=== PATIENT | female | born 1955 | race Caucasian/White ===

== ENCOUNTER → 2018-07-14 | Outpatient (CLI) | payer OTHER ==
[~2018-07-14] MED LIST: DEXA4 PO; GLIM4 PO; LISI20 PO; LORA.5 PO; METF500; Novolog Fl100 UNIT/1 SQ; ONDA4ODT; PROC10 PO; RAMI5 PO; Simvastatin20 MG PO
[2018-07-14 20:03] LABS: Bun/Creatinine Ratio 34.5 (12.0-20.0); Calcium, Blood 7.3 mg/dL (8.5-10.1); Creatinine, Blood 1.1 mg/dL (0.40-1.00); Potassium, Blood 3.7 mmol/L (3.5-5.5)
== END | disposition home or self-care (01) ==
LOC: LAB 18:23 → LAB SHORT 18:23
PROVIDERS: Hospitalist
DX: R60.0 Localized edema (principal)
CPT/HCPCS: 80048

== ENCOUNTER → 2018-12-28 | Outpatient (CLI) | payer MEDICARE, OTHER ==
[~2018-12-28] MED LIST changes: +ASPI325EC PO; +Bumetanide2 MG PO; +DOCCAL240 PO; +LEVSOD100 PO; +Metformin HCl1000 MG PO; +NOVOLOG FL100 UNIT/1 SC; +OMEPRAZOLE20 MG PO; +POTA10T PO; +Prinivil10 MG PO; +TOUJEO SOL300 UNIT/1 SC; +[UNRECOGNIZED DRUG - OTHER] PO
[2018-12-29 18:06] LABS: VARICELLA ZOSTER IGG >4000 index (Immune >165)
== END | disposition home or self-care (01) ==
LOC: LAB 13:11 → LAB SHORT 13:11
PROVIDERS: Hospitalist
DX: E11.65 Type 2 diabetes mellitus with hyperglycemia (principal); B02.9 Zoster without complications
CPT/HCPCS: 83036; 86787

== ENCOUNTER 2019-02-09 07:34 | Day surgery (SDC) | payer MEDICARE, OTHER ==
[~2019-02-09] VITALS: Ht 152.4 cm; Wt 84.8 kg
--- NOTE | 2019-02-09 08:40 | NUR ---
02/09/[address] NOTIFIED OF PT'S BLOOD SUGAR OF 365. NO INTERVENTIONS AT THIS TIME PER .
--- NOTE | 2019-02-09 09:24 | NUR ---
02/09/19923 Bertha Louis PT BEGAN WRETCHING AT 09. SUCTION USED ON CLEAR FLUID FROM MOUTH. HEAD TILTED DOWNWARD. 4MG IV ZOFRAN GIVEN PER DR. GILLILAND STOPPED AT 918.
== END 2019-02-09 10:15 | disposition home or self-care (01) ==
LOC: ORSCSDS 07:34
PROVIDERS: Internal Medicine Gastroenterology
PROC: 0DJD8ZZ Inspection of Lower Intestinal Tract, Via Natural or Artificial Opening Endoscopic (ICD-10-PCS; principal; 2019-02-09 08:45)
DX: K62.5 Hemorrhage of anus and rectum (principal); K62.7 Radiation proctitis; K64.8 Other hemorrhoids; K59.00 Constipation, unspecified; E11.9 Type 2 diabetes mellitus without complications; E03.9 Hypothyroidism, unspecified; E11.22 Type 2 diabetes mellitus with diabetic chronic kidney disease; E11.65 Type 2 diabetes mellitus with hyperglycemia; I12.9 Hypertensive chronic kidney disease with stage 1 through stage 4 chronic kidney disease, or unspecified chronic kidney disease; N18.2 Chronic kidney disease, stage 2 (mild); Z79.4 Long term (current) use of insulin; Z79.82 Long term (current) use of aspirin
CPT/HCPCS: 82947; J2405; J2704; J7120

== ENCOUNTER → 2019-05-04 | Outpatient (CLI) | payer MEDICARE, OTHER | END | disposition home or self-care (01) | LOC: LAB 18:24 → LAB SHORT 18:24 | DX: N39.0 Urinary tract infection, site not specified (principal) | CPT/HCPCS: 87077; 87086; 87186 ==

== ENCOUNTER → 2020-01-11 | Outpatient (CLI) | payer MEDICARE, OTHER | END | disposition home or self-care (01) | LOC: LAB 13:21 → LAB SHORT 13:21 | DX: N30.01 Acute cystitis with hematuria (principal) | CPT/HCPCS: 87077; 87086; 87186 ==

== ENCOUNTER → 2020-05-10 | Outpatient (CLI) | payer MEDICARE, OTHER ==
[2020-05-10 19:11] LABS: Bun/Creatinine Ratio 13.6 (12.0-20.0); Calcium, Blood 8.4 mg/dL (8.5-10.1); Creatinine, Blood 1.1 mg/dL (0.40-1.00); Potassium, Blood 3.3 mmol/L (3.5-5.5)
== END ==
LOC: LAB SHORT 17:32
PROVIDERS: Hospitalist
DX: I50.33 Acute on chronic diastolic (congestive) heart failure (principal)
CPT/HCPCS: 80048

== ENCOUNTER → 2020-12-13 | Outpatient (CLI) | payer MEDICARE, OTHER ==
[2020-12-13 16:42] LABS: CHOL/HDL RATIO 4.1; Cholesterol 228 mg/dL (50-200); HDL Cholesterol 56 mg/dL (>39); LDL/HDL RATIO 2.8; Low Density Lipoprotein Chol 155 mg/dL (0-110); Triglycerides 83 mg/dL (30-160); Very Low Density Lipoprot Chol 16 mg/dL (6-32)
[2020-12-13 16:55] LABS: Free Thyroxine 0.87 ng/dL (0.70-1.60)
[2020-12-13 16:57] LABS: Thyroid Stimulating Hormone 11.8 uIU/mL (0.360-4.800)
== END | disposition home or self-care (01) ==
LOC: LAB SHORT 11:13
PROVIDERS: Hospitalist
DX: E78.5 Hyperlipidemia, unspecified (principal); E11.65 Type 2 diabetes mellitus with hyperglycemia; E03.9 Hypothyroidism, unspecified
CPT/HCPCS: 80061; 82043; 83036; 84439; 84443

== ENCOUNTER → 2021-03-22 | Outpatient (CLI) | payer MEDICARE, OTHER | LOC: LAB SHORT 13:00 | DX: L89.620 Pressure ulcer of left heel, unstageable (principal); Z88.5 Allergy status to narcotic agent | CPT/HCPCS: 87070; 87077; 87147; 87186; 87205 ==

== ENCOUNTER 2021-04-06 12:41 | Day surgery (SDC) | payer MEDICARE, OTHER | END 2021-04-06 23:16 | disposition home or self-care (01) | LOC: WOUND 12:41 | PROC: 0JBR0ZZ Excision of Left Foot Subcutaneous Tissue and Fascia, Open Approach (ICD-10-PCS; principal; 2021-04-06) | DX: E11.621 Type 2 diabetes mellitus with foot ulcer (principal); L97.526 Non-pressure chronic ulcer of other part of left foot with bone involvement without evidence of necrosis; L89.620 Pressure ulcer of left heel, unstageable; E11.42 Type 2 diabetes mellitus with diabetic polyneuropathy; E11.51 Type 2 diabetes mellitus with diabetic peripheral angiopathy without gangrene; I11.0 Hypertensive heart disease with heart failure; I50.9 Heart failure, unspecified; I89.0 Lymphedema, not elsewhere classified; Z79.4 Long term (current) use of insulin; Z88.5 Allergy status to narcotic agent; Z87.891 Personal history of nicotine dependence | CPT/HCPCS: A9270; G0463 ==

== ENCOUNTER 2021-04-13 05:14 | Day surgery (SDC) | payer MEDICARE, OTHER ==
[~2021-04-13 05:14] MED LIST changes: +EUTHYROX125 MCG PO; -LEVSOD100 PO
== END 2021-04-13 22:55 | disposition home or self-care (01) ==
LOC: WOUND 05:14
DX: E11.621 Type 2 diabetes mellitus with foot ulcer (principal); L97.525 Non-pressure chronic ulcer of other part of left foot with muscle involvement without evidence of necrosis; L89.620 Pressure ulcer of left heel, unstageable; E11.42 Type 2 diabetes mellitus with diabetic polyneuropathy; E11.51 Type 2 diabetes mellitus with diabetic peripheral angiopathy without gangrene; I89.0 Lymphedema, not elsewhere classified
CPT/HCPCS: A9270

== ENCOUNTER 2021-04-14 18:03 | Inpatient (IN) | payer MEDICARE, OTHER ==
[~2021-04-14] VITALS: Ht 152.4 cm; Wt 86.0 kg
[~2021-04-14 18:03] MED LIST changes: +SEMGLEE PE100 UNIT/1 SC; -TOUJEO SOL300 UNIT/1 SC
[2021-04-14 18:39] LABS: BASOPHILS ABSOLUTE AUTO 0.14 K/mm3 (0.00-0.23); BASOPHILS PERCENT AUTO 1 % (0-2); EOSINOPHILS ABSOLUTE AUTO 0.24 K/mm3 (0.00-0.68); EOSINOPHILS PERCENT AUTO 2 % (0-6); Hematocrit 32.7 % (33.0-51.0); Hemoglobin 9.7 g/dL (11.5-16.0); IMMATURE GRAN ABSOLUTE AUTO 0.07 K/mm3 (0.00-0.10); IMMATURE GRAN PERCENT AUTO 0 % (0-1); LYMPHOCYTES PERCENT AUTO 8 % (21-46); MONOCYTES ABSOLUTE AUTO 1.12 K/mm3 (0.16-1.47); MONOCYTES PERCENT AUTO 7 % (4-13); Mean Corpuscular HGB 24.4 pg (26.0-34.0); Mean Corpuscular HGB Conc 29.7 g/dL (31.5-36.5); Mean Corpuscular Volume 82 fL (80-100); Mean Platelet Volume 8.4 fL (9.1-12.4); NEUTROPHILS ABSOLUTE AUTO 13.53 K/mm3 (1.96-9.15); NEUTROPHILS PERCENT AUTO 83 % (41-73); Platelet Count 609 K/mm3 (150-400); RDW Coefficient Variation 16.7 % (11.7-14.2); RDW Standard Deviation 49.8 fL (35.1-46.3); Red Blood Cell Count 3.97 M/mm3 (3.80-5.20)
[2021-04-14 18:53] LABS: Base Excess Venous -1.2 mmol/L; Bicarbonate Venous 22.6 mmol/L (24.0-30.0); PCO2 Venous 53.1 mmHg (38-42); PO2 Venous 38.9 mmHg (38-42); pH Blood Venous 7.29 (7.34-7.37)
[2021-04-14 19:02] LABS: Troponin I <0.015 ng/mL (0.000-0.040)
[2021-04-14 19:03] LABS: Alanine Aminotransfer (ALT/SGP 25 U/L (12-78); Albumin/Globulin Ratio 0.3 (0.8-1.8); Alk Phos 226 U/L (50-136); Anion Gap 5 mmol/L (6-16); Aspartate Aminotrans (AST/SGOT 23 U/L (12-37); Bilirubin, Total 0.7 mg/dL (0.1-1.0); Blood Urea Nitrogen 26 mg/dL (8-24); Bun/Creatinine Ratio 14.4 (12.0-20.0); CO2, Blood 25 mmol/L (21-32); Calcium, Blood 8.2 mg/dL (8.5-10.1); Chloride, Blood 105 mmol/L (98-108); Globulin, Blood 6.7 g/dL (2.2-4.0); Glomerular Filtration Rate 28 (60-); Glucose, Blood 157 mg/dL (70-99); Sodium, Blood 135 mmol/L (136-145); Total Protein, Blood 8.7 g/dL (6.4-8.2)
[2021-04-14 19:28] LABS: Influenza A, PCR NEGATIVE (NEGATIVE); Influenza B, PCR NEGATIVE (NEGATIVE); Resp Syncytial Virus, PCR NEGATIVE (NEGATIVE); SARS-Cov-2 (COVID-19) PCR, MMC NEGATIVE (NEGATIVE)
[2021-04-14 20:55] LABS: Prothrombin Time Results 12.5 Sec (9.7-11.5)
[2021-04-14 20:56] LABS: International Normalized Ratio 1.21
[2021-04-15] MEDS ORDERED: TORSE20 PO (00:22)
[2021-04-15] MEDS ORDERED: METO25ER PO (00:23)
[2021-04-15] MEDS ORDERED: TRAM50 PO (00:24)
--- NOTE | 2021-04-15 01:26 | NUR ---
ASSUMED CARE OF PATIENT AT APPROXIMATELY 2350 FROM ED RN MARTHA. PATIENT ALERT AND ORIENTED X4; BEDREST; TRANSFER VIA SLIDE SHEET AND MAX ASSIST FROM ED TO PCU STRETCHER. PATIENT DENIES PAIN, NUMBNESS, TINGLING, DIZZINESS AND NAUSEA. ADMISSION COMPLETE. BEDSIDE WITH PATIENT UNTIL ADMIT WAS COMPLETE. PIV S/L. NSR ON TELE; OXYGEN SATURATION ABOVE 90% ON 30%FIO2 ON BIPAP. FOAM APPLIED TO MATTRESS. PATIENT HAD BLOOD BETWEEN LEGS; REPORTS FROM CATHETER INSERTION; CLEAR YELLOW URINE DRAINING FROM CATHETER. FOOT WOUND TO LEFT WRAPPED AND DRESSED BY WOUND CLINIC; PHOTOS NOT TAKEN YET.
[2021-04-15 05:33] LABS: BASOPHILS ABSOLUTE AUTO 0.09 K/mm3 (0.00-0.23); BASOPHILS PERCENT AUTO 1 % (0-2); EOSINOPHILS PERCENT AUTO 2 % (0-6); Hematocrit 25.2 % (33.0-51.0); Hemoglobin 7.9 g/dL (11.5-16.0); IMMATURE GRAN ABSOLUTE AUTO 0.02 K/mm3 (0.00-0.10); IMMATURE GRAN PERCENT AUTO 0 % (0-1); LYMPHOCYTES ABSOLUTE AUTO 1.25 K/mm3 (0.84-5.20); LYMPHOCYTES PERCENT AUTO 12 % (21-46); MONOCYTES ABSOLUTE AUTO 0.95 K/mm3 (0.16-1.47); MONOCYTES PERCENT AUTO 9 % (4-13); Mean Corpuscular HGB 24.8 pg (26.0-34.0); Mean Corpuscular HGB Conc 31.3 g/dL (31.5-36.5); Mean Corpuscular Volume 79 fL (80-100); Mean Platelet Volume 8.3 fL (9.1-12.4); NEUTROPHILS ABSOLUTE AUTO 8.08 K/mm3 (1.96-9.15); NEUTROPHILS PERCENT AUTO 76 % (41-73); Platelet Count 444 K/mm3 (150-400); RDW Coefficient Variation 16.7 % (11.7-14.2); Red Blood Cell Count 3.18 M/mm3 (3.80-5.20); White Blood Cell Count 10.59 K/mm3 (4.00-11.30)
[2021-04-15 05:44] LABS: PCO2 Arterial 37.1 mmHg (35-45); PO2 Arterial 74.8 mmHg (80-100); pH Blood Arterial 7.43 (7.35-7.45)
[2021-04-15 05:53] LABS: Alanine Aminotransfer (ALT/SGP 22 U/L (12-78); Albumin, Blood 1.6 g/dL (3.4-5.0); Albumin/Globulin Ratio 0.3 (0.8-1.8); Alk Phos 165 U/L (50-136); Anion Gap 8 mmol/L (6-16); Aspartate Aminotrans (AST/SGOT 14 U/L (12-37); Bilirubin, Total 0.5 mg/dL (0.1-1.0); Blood Urea Nitrogen 29 mg/dL (8-24); Bun/Creatinine Ratio 15.8 (12.0-20.0); CO2, Blood 23 mmol/L (21-32); Calcium, Blood 7.9 mg/dL (8.5-10.1); Chloride, Blood 109 mmol/L (98-108); Creatinine, Blood 1.84 mg/dL (0.40-1.00); Globulin, Blood 5.3 g/dL (2.2-4.0); Glomerular Filtration Rate 27 (60-); Glucose, Blood 84 mg/dL (70-99); Magnesium, Blood 1.8 mg/dL (1.6-2.4); Potassium, Blood 4.7 mmol/L (3.5-5.5); Sodium, Blood 140 mmol/L (136-145); Total Protein, Blood 6.9 g/dL (6.4-8.2); Troponin I <0.015 ng/mL (0.000-0.040)
[2021-04-15 06:30] LABS: International Normalized Ratio 1.26
--- NOTE | 2021-04-15 06:44 | NUR ---
PATIENT SLEPT ABOUT FIVE HOURS LAST NIGHT; WORE BIPAP SINCE ARRIVAL EXCEPT FOR 20 MINUTE BREAK FOR MEDICATIONS. NO OTHER ACUTE CHANGES TO REPORT.
--- NOTE | 2021-04-15 11:25 | NUR ---
PATIENT ALERT AND ORIENTED X4. ABLE TO MOVE ALL EXTREMITIES. PERRLA. NUMBNESS/TINGLING TO LOWER LEGS, MORE SO IN LEFT LEG. OVERALL WEAK AND SOB WITH MOVEMENT. ON BIPAP THIS AM, TRANSITIONED TO NASAL CANNULA. NEEDING 1-3L OF O2 DEPENDING ON ACTIVITY. SOB WHEN UP TO BEDSIDE COMMODE. DESATS TO HIGH 80'S WHEN ONLY ON 1L. LUNGS SOUNDING CLEAR AND DIM IN BASES. TELE SHOWING SINUS THIS AM. TELE DISCONTINUED. VITAL SIGNS STABLE. DENIES CHEST PAIN/PRESSURE. LOWER LYMPH EDEMA WITH LEFT FOOT WOUND. DRESSING CHANGE DUE TODAY. BOTTOM RED, MEPILEX IN PLACE. UP TO BSC WITH 1 PERSON ASSIST. UNDERWOOD CATH IN PLACE DRAINING CLEAR/YELLOW URINE. DENIES ABDOMINAL PAIN/NAUSEA. NOT HUNGRY, EATING SMALL AMOUNTS. ANXIOUS AT TIMES. CALL LIGHT IN REACH. Q2 TURNING AND NEEDED. SMALL BM THIS AM. WILL CONTINUE TO MONITOR.
--- NOTE | 2021-04-15 18:45 | NUR ---
SHIFT SUMMARY: PATIENT REMAINS ALERT AND ORIENTED. NO ACUTE CHANGES. 1-2L O2 VIA NASAL CANNULA THROUGHOUT SHIFT. UP TO SIDE OF BED WHEN EATING AND TO [employer] [employer] FOR BOWEL MOVEMENTS. UNDERWOOD DRAINING CLEAR/YELLOW URINE. CATH CARE PROVIDED THIS SHIFT. MEPILEX IN PLACE OVER COCCYX. WOUND DRESSING CHANGED AND PHOTOS IN CHART. ACHS BLOOD SUGARS. PATIENT SOB WITH MOVEMENT AND VERY ANXIOUS WITH SOB. REDNESS NOTED TO FACE DUE TO BIPAP MASK. VITALS REMAIN STABLE. CALL LIGHT IN REACH. BED BATH THIS SHIFT. WILL CONTINUE TO MONITOR AND REPORT OFF.
--- NOTE | 2021-04-16 05:31 | NUR ---
SHIFT SUMMARY NO ACUTE CHANGES THIS SHIFT. PT A&OX4. ANXIOUS. SP02>92% ON 1-2L NC. DESATS TO HIGH 80'S W/ EXERTION. PT MEDICAL STATUS, NO TELE. VSS. PT HAS UNDERWOOD CATHETER DRAINING CLEAR YELLOW URINE TO GRAVITY. PT UP TO BS TO HAVE ONE BM THIS SHIFT. PT SLEPT MOST OF NIGHT, AWAKENED W/ AN EPISODE OF ANXIOUSNESS, DID NOT KNOW WHERE SHE WAS. REORIENTED QUICKLY AND DID DEEP BREATHING EXERCISES TO CALM DOWN. CALL LIGHT IN REACH.
[2021-04-16 06:32] LABS: BASOPHILS PERCENT AUTO 1 % (0-2); EOSINOPHILS ABSOLUTE AUTO 0.28 K/mm3 (0.00-0.68); EOSINOPHILS PERCENT AUTO 3 % (0-6); Hematocrit 26.5 % (33.0-51.0); Hemoglobin 8.1 g/dL (11.5-16.0); IMMATURE GRAN ABSOLUTE AUTO 0.03 K/mm3 (0.00-0.10); IMMATURE GRAN PERCENT AUTO 0 % (0-1); LYMPHOCYTES ABSOLUTE AUTO 1.34 K/mm3 (0.84-5.20); LYMPHOCYTES PERCENT AUTO 12 % (21-46); MONOCYTES ABSOLUTE AUTO 1.07 K/mm3 (0.16-1.47); MONOCYTES PERCENT AUTO 10 % (4-13); Mean Corpuscular HGB 24.8 pg (26.0-34.0); Mean Corpuscular HGB Conc 30.6 g/dL (31.5-36.5); Mean Corpuscular Volume 81 fL (80-100); Mean Platelet Volume 8.7 fL (9.1-12.4); NEUTROPHILS ABSOLUTE AUTO 7.95 K/mm3 (1.96-9.15); NEUTROPHILS PERCENT AUTO 74 % (41-73); Platelet Count 465 K/mm3 (150-400); RDW Coefficient Variation 17.1 % (11.7-14.2); RDW Standard Deviation 49.6 fL (35.1-46.3); Red Blood Cell Count 3.26 M/mm3 (3.80-5.20); White Blood Cell Count 10.77 K/mm3 (4.00-11.30)
[2021-04-16 06:49] LABS: Magnesium, Blood 1.9 mg/dL (1.6-2.4); Potassium, Blood 4.4 mmol/L (3.5-5.5)
--- NOTE | 2021-04-16 11:15 | NUR ---
Pt sitting in chair upon arrival. Pt is A&OX4 and denies pain at this time. Mild dyspnea noted as evidenced by Pt speaking in 3 to 4 word sentences. Pt reports dyspnea has improved. Pt reports intermittent anxiety. Engaged in therapeutic discussion regarding advanced care planning. Pt reports living at home with her . She reports no children. Pt's is supportive and relatively healthy. Gentle education on disease process and routine conversations with PCP. Gentle education in the importance of compliance with recommendations. Discussed considering completing an advanced directive. Educated on each section to complete and the importance of appointing a healthcare inside technical sales representative. Answered questions and offered therapeutic listening. Pt will take home AD and consider completing with spouse. Pt expresses appreciation and reports no other concerns at this time. Spoke with Primary RN Wes and discussed case. Palliative Care will remain available.
--- NOTE | 2021-04-16 16:01 | NUR ---
TRANSFER NOTE PT REPORT GIVEN AT 1550 VIA TELEPHONE TO MEDICAL FLOOR NURSE. PT LEFT VIA WHEELCHAIR WITH BELONGINGS IN BAG AND ON 1L NC.
--- NOTE | 2021-04-16 17:26 | NUR ---
TRANSFER NOTE- PT TRANSFERED TO MEDICAL FLOOR FROM PCU. PT ON 1L VIA NC ON ARRIVAL. ORDER FOR 2VIEW CHEST RECIEVED AFTER TRANSFER PT JUST TAKEN TO IMAGING NOW. BG 106. PER REPORT PT BECOMES ANXIOUS ABOUT THE IDEA OF POC BG CHECKS. PT DID GET A LITTLE ANXXIOUS BUT TOLLERATED WELL OVERALL. UNDERWOOD IN PLACE PATENT AND DRAINING; UNDERWOOD IN PLACE FOR RETENTION PER REPORT FROM CHEESE PANCAKE ROLLER.
--- NOTE | 2021-04-16 18:31 | NUR ---
SHIFT SUMMARY- PT TRANSFERED TO MEDICAL FLOOR LATE IN THE DAY. PT CURRENTLY SITTING UP IN THE RECLINER, UNDERWOOD IN PLACE PATENT AND DRAINING CLEAR YELLOW URINE WIT SOME SEDIMENT. PT HAS HAD NO C/O PAIN SINCE ARRIVING ON MEDICAL FLOOR. PT ON 1L VIA NC AT THIS TIME NO S&S OF DISTRESS AT THIS TIME WILL CTM AND PASS ON IN REPORT TO NIGHT RN.
[2021-04-17 05:11] LABS: Bun/Creatinine Ratio 17.3 (12.0-20.0); Calcium, Blood 8.2 mg/dL (8.5-10.1); Creatinine, Blood 1.97 mg/dL (0.40-1.00); Potassium, Blood 4.4 mmol/L (3.5-5.5)
[2021-04-17 05:31] LABS: BASOPHILS ABSOLUTE AUTO 0.13 K/mm3 (0.00-0.23); BASOPHILS PERCENT AUTO 1 % (0-2); EOSINOPHILS ABSOLUTE AUTO 0.41 K/mm3 (0.00-0.68); EOSINOPHILS PERCENT AUTO 4 % (0-6); Hematocrit 28.6 % (33.0-51.0); Hemoglobin 8.6 g/dL (11.5-16.0); IMMATURE GRAN ABSOLUTE AUTO 0.04 K/mm3 (0.00-0.10); IMMATURE GRAN PERCENT AUTO 0 % (0-1); LYMPHOCYTES ABSOLUTE AUTO 1.38 K/mm3 (0.84-5.20); LYMPHOCYTES PERCENT AUTO 13 % (21-46); MONOCYTES PERCENT AUTO 10 % (4-13); Mean Corpuscular HGB 24.3 pg (26.0-34.0); Mean Corpuscular HGB Conc 30.1 g/dL (31.5-36.5); Mean Corpuscular Volume 81 fL (80-100); NEUTROPHILS ABSOLUTE AUTO 7.96 K/mm3 (1.96-9.15); NEUTROPHILS PERCENT AUTO 72 % (41-73); Platelet Count 495 K/mm3 (150-400); RDW Coefficient Variation 17.2 % (11.7-14.2); RDW Standard Deviation 50.1 fL (35.1-46.3); Red Blood Cell Count 3.54 M/mm3 (3.80-5.20); White Blood Cell Count 11.02 K/mm3 (4.00-11.30)
--- NOTE | 2021-04-17 05:46 | NUR ---
SHIFT SUMMARY: AOX3, COOPERATIVE. LS DIMINISHED, OCCATIONAL HACKING COUGH. ON 1 LITER OF O2, ABLE TO GET UP IN THE ROOM WITH LITTLE SOB. BLE EDEMA 2+ WITH LYMPHEDEMA. SLEEPS IN SITTING POSITION DUE TO ORTHOPNEA. UNDERWOOD PATENT AND DRAINING CLEAR URINE. BS LOW 100'S DID NOT GIVE LONG ACTING OR SHORT ACTING THE PATIENT TEND TO DROP QUICK. BP ELEVATED IN THE 150-160'S. IT IS NOTED THAT THE PATIENT HAS BEEN HAVING A SLOW DECLINE IN KIDNEY FUNCTION ACCORDING TO LABS. NO OTHER CHANGES TO REPORT THIS SHIFT. CALL LIGHT IN REACH.
--- NOTE | 2021-04-17 13:01 | NUR ---
Met pt. sitting up in a chair restin she reports to be doing much better , offered prayers oer the pt.
[2021-04-17 15:10] LABS: A/G RATIO 0.5 (0.7-1.7); ALBUMIN 2.1 g/dL (2.9-4.4); ALPHA-1-GLOBULIN 0.4 g/dL (0.0-0.4); GLOBULIN, TOTAL 4.4 g/dL (2.2-3.9); M-SPIKE Not Observed g/dL (Not Observed); PROTEIN, TOTAL, SERUM 6.5 g/dL (6.0-8.5)
[2021-04-17 15:16] LABS: Bun/Creatinine Ratio 16.2 (12.0-20.0); Calcium, Blood 8.5 mg/dL (8.5-10.1); Creatinine, Blood 2.1 mg/dL (0.40-1.00); Potassium, Blood 4.9 mmol/L (3.5-5.5)
--- NOTE | 2021-04-17 16:28 | NUR ---
DAY SHIFT SUMMARY PT PLEASANT BUT ANXIOUS, PT STATES HIGH ANXIETY WITH HOSPITALS AND NEEDLES. PT HAD A VISITOR TODAY AT BEDSIDE. UNDERWOOD IN PLACE PATENT AND DRAINING BY GRAVITY. WOUND CLINIC CALLED FOR CONTINUITY OF CARE, PT STATES SHE HAS BEEN GOING TO WOUND CARE CLINIC OUT PATIENT FOR WOUND TO FOOT. WOUND CARE ORDERS ENTERED PER DR RECINOS, TO BEGIN TOMORROW. PT STATES SHE HAS NORMAL WOUND CLINIC APPOINTMENT TOMORROW. CALL LIGHT AT BEDSIDE.
--- NOTE | 2021-04-18 04:55 | NUR ---
SHIFT SUMMARY PATIENT HAD NO ACUTE CHANGES OBSERVED. AXOX 3 AND ONE ASSIST W/FWW TO BSC. TAKES MEDICATION WHOLE WITH WATER. CBG 204. UNDERWOOD PATENT AND DRAINING TO GRAVITY. MEDIPORT RU CHEST NOT ACCESSED SINCE MAY PER PATIENT. DENIES PAIN, SOB, AND N/V. VSS/AFEBRILE. CALL LIGHT IN REACH. BED IN LOWEST POSITION. WILL CONTINUE TO MONITOR UNTIL DAY SHIFT NURSE ASSUMES CARE.
[2021-04-18 06:09] LABS: Bun/Creatinine Ratio 17.3 (12.0-20.0); Calcium, Blood 7.8 mg/dL (8.5-10.1); Creatinine, Blood 2.02 mg/dL (0.40-1.00); Potassium, Blood 4.5 mmol/L (3.5-5.5)
[2021-04-18] MEDS ORDERED: Amlodipine Bes2.5 MG PO (14:48)
--- NOTE | 2021-04-18 15:35 | NUR ---
DISCHARGE PT DISCHARGED HOME, IN ROOM WITH PT AT TIME OF DISCHARGE. IV REMOVED AND WOUND CARE PROVIDED PER DR ORDER PRIOR TO DISCHARGE. PT TRANSFERED TO VEHICLE VIA WHEELCHAIR WITH PERSONAL BELONGINGS. PT EVAL, RT, AND O2 HOME EVAL MET WITH PT PRIOR TO DISCHARGE. DISCHARGE EDUCATIONS GIVEN TO AND REVIEWED WITH PT. FOLLOW UP APPOINTMENT MADE WITH PCP AND RX FAXED TO PHARMACY. NEW MED EDUCATION REVIEWED AND GIVEN TO PT.
== END 2021-04-18 15:26 | disposition home or self-care (01) | DRG 291 ==
LOC: ER 18:03 → PCU 21:19 → ERHOLD 21:19 → PCU 23:47 → MEDS 04-16 16:10
PROVIDERS: Emergency Medicine; Family Medicine; Student in an Organized Health Care Education/Training Program; ADMIT Internal Medicine
PROC: 5A09357 Assistance with Respiratory Ventilation, Less than 24 Consecutive Hours, Continuous Positive Airway Pressure (ICD-10-PCS; principal; 2021-04-14)
DX: I13.0 Hypertensive heart and chronic kidney disease with heart failure and stage 1 through stage 4 chronic kidney disease, or unspecified chronic kidney disease (principal); I50.33 Acute on chronic diastolic (congestive) heart failure; J96.01 Acute respiratory failure with hypoxia; J96.02 Acute respiratory failure with hypercapnia; G92.8 Other toxic encephalopathy; E87.2 Acidosis; N04.9 Nephrotic syndrome with unspecified morphologic changes; N17.9 Acute kidney failure, unspecified; Z20.822 Contact with and (suspected) exposure to COVID-19; R79.1 Abnormal coagulation profile; F41.9 Anxiety disorder, unspecified; E11.649 Type 2 diabetes mellitus with hypoglycemia without coma; N18.30 Chronic kidney disease, stage 3 unspecified; I07.1 Rheumatic tricuspid insufficiency; I27.20 Pulmonary hypertension, unspecified; E11.22 Type 2 diabetes mellitus with diabetic chronic kidney disease; Z91.19 Patient's noncompliance with other medical treatment and regimen; E03.9 Hypothyroidism, unspecified; Z85.42 Personal history of malignant neoplasm of other parts of uterus; Z90.49 Acquired absence of other specified parts of digestive tract; Z90.710 Acquired absence of both cervix and uterus; Z88.5 Allergy status to narcotic agent; Z79.4 Long term (current) use of insulin; Z79.899 Other long term (current) drug therapy
CPT/HCPCS: 0241U; 36415; 36600; 51702; 71045; 71046; 71260; 80048; 80053; 82803; 82947; 83605; 83735; 83880; 84100; 84145; 84165; 84443; 84484; 85025; 85379; 85610; 87040; 93005; 93010; 93306; 94640; 94660; 94760; 94761; 94762; 96365; 96367; 96375; 97116; 97161; 99285-25; A9270; J0456; J0696; J1644; J1815; J1940; J7050; Q9967

== ENCOUNTER 2021-04-25 02:32 | Day surgery (SDC) | payer MEDICARE, OTHER ==
[~2021-04-25 02:32] MED LIST changes: +Amlodipine Bes2.5 MG PO; +METO25ER PO; +TORSE20 PO; +TRAM50 PO
[2021-04-25] MEDS ORDERED: POTA10T PO (13:28)
[2021-04-26] MEDS ORDERED: NOVOLIN 70100 UNIT/4 SC (09:19)
== END 2021-04-25 23:08 | disposition home or self-care (01) ==
LOC: WOUND 02:32
DX: E11.621 Type 2 diabetes mellitus with foot ulcer (principal); L97.525 Non-pressure chronic ulcer of other part of left foot with muscle involvement without evidence of necrosis; L89.620 Pressure ulcer of left heel, unstageable; E11.51 Type 2 diabetes mellitus with diabetic peripheral angiopathy without gangrene; E11.42 Type 2 diabetes mellitus with diabetic polyneuropathy; M79.672 Pain in left foot; I89.0 Lymphedema, not elsewhere classified
CPT/HCPCS: A9270; G0463